=== PATIENT | female | born 1950 | race Caucasian/White ===

== ENCOUNTER 2024-12-26 09:43 | Inpatient (IN) | payer MEDICARE, SELFPAY ==
[2024-12-26] VITALS (44 sets, daily range): BP systolic 85–112; BP diastolic 42–61; PULSE 80–111; TEMP 36.6–36.9; O2SAT 90–97; BMI 20.8; BMI 20.4
--- NOTE | 2024-12-26 10:03 | ECG_ITS ---
The [facility] Test Date: 2024-12-26 Pat Name: SEGUNDO ARZOLA Department: Room: - Gender: Female Nursing Assoc: : 1950 Requested By: 1030 Order Number: [id number] Reading MD: LEROY MAYFIELD Measurements Intervals [place] Rate: 94 P: 90 SC: 166 QRS: 67 QRSD: 100 T: 73 QT: 394 QTc: 446 Interpretive Statements 1100 Sinus rhythm Right bundle branch block Secondary ST/T wave changes 9150 abnormal ECG No previous ECG available for comparison Electronically Signed On 12-26-2024 19:43:27 EST by LEROY MAYFIELD
--- NOTE | 2024-12-26 10:04 | ED_ITS ---
HPI HPI - General Adult General Chief complaint: Upper Respiratory Infection Stated complaint: URTI COMPLAINTS Time Seen by Provider: 12/26/24 09:51 Source: patient Mode of arrival: Wheelchair History of Present Illness HPI narrative: 74-year-old female presents for cough and feeling short of breath. Most of the history is obtained by her daughter who brings her in. She has been feeling sick for multiple days, about a week. She has not used her rescue inhaler. She has not had a known fever. She did not have a flu shot or pneumonia shot this year. Related Data Home Medications ?Medication ?Instructions ?Recorded ?Confirmed acetaminophen 300 mg-codeine 30 mg 1 tab PO BID 12/26/24 12/26/24 tablet albuterol sulfate 90 mcg/actuation 2 puff inhalation Q4H PRN 12/26/24 12/26/24 aerosol inhaler shortness of breath or wheezing budesonide 160 mcg-glycopyr 9 2 inh inhalation BID 12/26/24 12/26/24 mcg-formot 4.8 mcg/actuation HFA inhaler ([employer]) cetirizine 10 mg tablet 10 mg PO QPM 12/26/24 12/26/24 cyanocobalamin (vitamin B-12) 1,000 mcg IM .[id number] 12/26/24 12/26/24 1,000 mcg/mL injection solution ergocalciferol (vitamin D2) 1,250 1,250 mcg PO QWEEK 12/26/24 12/26/24 mcg (50,000 unit) capsule fluticasone propionate 50 2 spray intranasal DAILY 12/26/24 12/26/24 mcg/actuation nasal spray,suspension levothyroxine 88 mcg tablet 88 mcg PO DAILY 12/26/24 12/26/24 temazepam 15 mg capsule 15 mg PO QPM 12/26/24 12/26/24 Allergies Allergy/AdvReac Type Severity Reaction Status Date / Time acetaminophen (From Allergy Severe Unknown Verified 12/26/24 10:02 Darvocet-N) butorphanol (From Stadol) Allergy Severe Unknown Verified 12/26/24 10:02 oxycodone (From Percocet) Allergy Severe Unknown Verified 12/26/24 10:02 propoxyphene (From Allergy Severe Unknown Verified 12/26/24 10:02 Darvocet-N) Opioid HPI Opioid Management Most Recent Opioid Data: No Data to Display Review of Systems 2 ROS Narrative A ten point review of systems is negative except as noted above. PFSH PFSH Social History Little interest or pleasure in doing things: not at all Feeling down, depressed, or hopeless: not at all Exam Narrative Exam Narrative: Nurses note and vital signs reviewed and patient is not hypoxic. General: The patient appears well and in no apparent distress. Patient is resting comfortably on cart. Skin: Warm, dry, no pallor noted. There is no rash noted. Head: Normocephalic, atraumatic Eye: Normal conjunctiva, no drainage Ears, Nose, Mouth, and Throat: oral mucosa is moist. Nares patent. Cardiovascular: Regular Rate and Rhythm Respiratory: Bilateral rhonchi and bilateral rales Back: non-tender GI: Soft and nontender Musculoskeletal: The patient has no evidence of calf tenderness, no pitting edema, symmetrical pulses noted bilaterally Neurological: A&O, normal speech Psychiatric: Cooperative Constitutional Vital Signs, click to edit/add: Last Vital Signs Temp 97.9 F 12/26/24 10:02 Pulse 99 H 12/26/24 09:57 Resp 18 12/26/24 09:57 BP 102/58 12/26/24 11:07 Pulse Ox 97 12/26/24 10:39 O2 Del Method Nasal Cannula 12/26/24 10:39 O2 Flow Rate 3 12/26/24 10:39 Course Vital Signs Vital signs: Vital Signs Pulse Rate 99 H 12/26/24 09:57 Respiratory Rate 18 12/26/24 09:57 Blood Pressure 85/61 L 12/26/24 09:57 Pulse Oximetry 93 L 12/26/24 09:57 Oxygen Delivery Method Nasal Cannula 12/26/24 09:57 Oxygen Delivery Flow Rate 3 12/26/24 09:57 Temperature 97.9 F 12/26/24 10:02 Pulse Rate 99 H 12/26/24 09:57 Respiratory Rate 18 12/26/24 09:57 Blood Pressure 102/58 12/26/24 11:07 Pulse Oximetry 97 12/26/24 10:39 Oxygen Delivery Method Nasal Cannula 12/26/24 10:39 Oxygen Delivery Flow Rate 3 12/26/24 10:39 Medical Decision Making MDM Narrative Medical decision making narrative: Bilateral lower lobe pneumonia is identified. Blood cultures obtained and lactic acid is pending. She was given IV Rocephin and Zithromax and is being admitted. Treatment diagnosis and disposition were discussed with the patient and her daughter. Differential Diagnosis Differential Diagnosis: Pneumonia, COVID, influenza, viral illness Lab Data Lab results reviewed: Yes I reviewed the patient's lab results Labs: Lab Results 12/26/24 12/26/24 Range/Units 10:05 10:06 WBC 6.3 (4.0-11.0) 10^3/uL RBC 4.19 L (4.20-5.40) 10^6/uL Hgb 11.6 L (12.0-16.0) g/dL Hct 37.1 (36.0-48.0) % MCV 88.5 (81.0-99.0) fL MCH 27.7 (26.7-34.0) pg MCHC 31.3 (29.9-35.2) g/dL RDW 17.0 H (11.0-15.0) % Plt Count 78 L (150-450) 10^3/uL MPV 13.4 (9.5-13.5) fL Neut % (Auto) 89.2 H (43.0-75.0) % Lymph % (Auto) 3.7 L (20.5-60.0) % Hughes % (Auto) 6.9 (1.7-12.0) % Eos % (Auto) 0.0 L (0.9-7.0) % Baso % (Auto) 0.0 L (0.2-2.0) % Neut # (Auto) 5.6 (1.4-6.5) 10^3/uL Lymph # (Auto) 0.2 L (1.2-3.8) 10^3/uL Hughes # (Auto) 0.4 (0.3-0.8) 10^3/uL Eos # (Auto) 0.0 (0.0-0.7) 10^3/uL Baso # (Auto) 0.0 (0.0-0.1) 10^3/uL Abs Immat Gran (auto) 0.01 (0.00-0.03) 10^3/uL Imm/Tot Granulo (auto) 0.2 (0.0-0.5) % Sodium 144 (136-145) mmol/L Potassium 3.5 (3.5-5.1) mmol/L Chloride 108 H (98-107) mmol/L Carbon Dioxide 26.3 (21.0-32.0) mmol/L Anion Gap 13.2 BUN 18.0 (7.0-18.0) mg/dL Creatinine 0.77 (0.55-1.02) mg/dL Est GFR ( Amer) >60 (>=60 mL/min/1.73m^2) Est GFR (Non-Af Amer) >60 (>=60 mL/min/1.73m^2) BUN/Creatinine Ratio 23.4 Glucose 124 H (74-106) mg/dL Lactate 1.6 (0.4-2.0) mmol/L Calcium 7.1 L (8.5-10.1) mg/dL Troponin I High Sens 15.3 (4.0-51.3) pg/mL Influenza Type A Ag Negative Influenza Type B Ag Negative SARS-CoV-2 Ag (CV2AG) Negative (NEGATIVE) Imaging Data Chest x-ray: Radiologist's impression: ITS Impressions Chest X-Ray 12/26/24 10:15 IMPRESSION: 1. Moderate to marked bibasilar infiltrates suggestive of pneumonia. 2. Underlying marked emphysematous changes. Electronically authenticated by: JIGNA POWELL Date: 12/26/2024 10:35 Discharge Plan Discharge Chief Complaint: Upper Respiratory Infection Clinical Impression: Pneumonia Patient Disposition: Admitted As Inpatient Time of Disposition Decision: 11:22 Condition: Fair
--- NOTE | 2024-12-26 10:15 | XR_ITS ---
The [address] [address] Patient Name: SEGUNDO ARZOLA MRN: [id number] date: 1950 Sex: F Assigned Patient Location: ED.MAIN Current Patient Location: ER Accession/Order Number: [id number] Exam Date: 12/26/2024 10:12 Report Date: 12/26/2024 10:35 At the request of: ZOEY ANNE Procedure: XR chest 1V EXAMINATION: XR chest 1V HISTORY: SOB COMPARISON: No relevant comparison available. FINDINGS: LUNGS: Hyperexpanded lungs with chronic interstitial changes/emphysematous changes. Patchy confluent opacities within lung bases; moderate on right, marked on left. VASCULATURE: No increased pulmonary vasculature. PLEURA: No pneumothorax, effusion, or pleural thickening. CARDIAC: No cardiomegaly or cardiac silhouette abnormality. MEDIASTINUM: No visible mass or adenopathy. BONES: No fracture or visible bone lesion. OTHER: Negative. XR/XR chest 1V IMPRESSION: 1. Moderate to marked bibasilar infiltrates suggestive of pneumonia. 2. Underlying marked emphysematous changes. Electronically authenticated by: JIGNA POWELL Date: 12/26/2024 10:35
[2024-12-26] MEDS: ALBUTEROL SULFATE 2.5 MG/3 ML VIAL NEB IH (10:31)
[2024-12-26 10:39] LABS: Hematocrit 37.1 % (36.0-48.0); Hemoglobin 11.6 g/dL (12.0-16.0); Immature Granulocytes Abs Auto 0.01 10^3/uL (0.00-0.03); Immature Granulocytes Pct Auto 0.2 % (0.0-0.5); Lymphocytes Absolute Auto 0.2 10^3/uL (1.2-3.8); Lymphocytes Percent Auto 3.7 % (20.5-60.0); Mean Corpuscular HGB Conc 31.3 g/dL (29.9-35.2); Mean Corpuscular Hemoglobin 27.7 pg (26.7-34.0); Mean Corpuscular Volume 88.5 fL (81.0-99.0); Mean Platelet Volume 13.4 fL (9.5-13.5); Monocytes Absolute Auto 0.4 10^3/uL (0.3-0.8); Monocytes Percent Auto 6.9 % (1.7-12.0); Neutrophils Absolute Auto 5.6 10^3/uL (1.4-6.5); Neutrophils Percent Auto 89.2 % (43.0-75.0); Platelet Count 78 10^3/uL (150-450); Red Blood Count 4.19 10^6/uL (4.20-5.40); White Blood Count 6.3 10^3/uL (4.0-11.0)
[2024-12-26 10:51] LABS: Anion Gap 13.2; BUN Creatinine Ratio 23.4; Calcium 7.1 mg/dL (8.5-10.1); Carbon Dioxide 26.3 mmol/L (21.0-32.0); Chloride 108 mmol/L (98-107); Estimated GFR (African America >60 (>=60 mL/min/1.73m^2); Estimated GFR (Non-African Ame >60 (>=60 mL/min/1.73m^2); Glucose 124 mg/dL (74-106); Potassium 3.5 mmol/L (3.5-5.1); Sodium 144 mmol/L (136-145)
[2024-12-26 10:55] LABS: Influenza Virus A Antigen Negative; Influenza Virus B Antigen Negative; Internal Control Within Normal Limits; SARS-CoV-2 Ag NEGATIVE (NEGATIVE)
[2024-12-26 10:58] LABS: Troponin I High Sensitivity 15.3 pg/mL (4.0-51.3)
[2024-12-26 11:00] LABS: Lactate/Lactic Acid 1.6 mmol/L (0.4-2.0)
--- NOTE | 2024-12-26 11:08 | PC.NURSE ---
blood cult x 2 obtained and sent to lab
[2024-12-26] MEDS: CEFTRIAXONE 1,000 MG in 0.9 % SODIUM CHLORIDE 50 ML 100 MG IV (11:17)
[2024-12-26] MEDS: AZITHROMYCIN 500 MG in 0.9 % SODIUM CHLORIDE 250 ML 250 MG IV (11:22)
[2024-12-26] MEDS: ACETAMINOPHEN 300 MG/ 30 MG CODEINE TABLET 0.5 TAB PO ×3 (12:13→21:58)
[2024-12-26] MEDS: ACETAMINOPHEN 500 MG TABLET PO ×3 (12:13→21:58)
--- NOTE | 2024-12-26 14:04 | RESP.RT ---
Given per nursing
--- NOTE | 2024-12-26 14:20 | PM.HP ---
HPI H&P: HPI History of Present Illness Chief complaint: URTI COMPLAINTS PNEUMONIA Narrative: Patient is a 74 y.o white female with past medical history of hypothyroidism, insomnia, seasonal allergies, COPD and chronic back pain what presented to the ER with weakness, shortness of breath, cough, nasal drainage, chills. This has been going on for several days prior to presentation. She is past smoker, quit many years ago. She does wears oxygen at home, 3L at home. She has been using it continuous for last few days at 3L . 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 She also has been using her nebulizer machine regularly without improvement. ER findings: WBCs 6.3, Hb 11.6; CXR showed bilateral lower lobe infiltrates, influenza and COVID negative Opioid HPI Opioid Management Most Recent Pain and Opioid Data: Last Pain Scale 6 12/26/24 15:00 12/26/24 Last Pain Assessment 12/26/24 16:00 Last MAR Pain Assessment 12/26/24 12:13 Last ORT Total Score 0 12/26/24 14:53 12/26/24 Last ORT Risk Category Low Risk 12/26/24 14:53 12/26/24 Review of Systems ROS Narrative ROS: a complete review of systems were reviewed with patient and are positive as below or listed in History of Chief Complaint. General: no fever, but chills, no night sweats Head: no headache, trauma, visual changes, nausea or vomiting Skin: no reported rashes, itching or sores Eyes: no blurriness of vision Ears: no reported hearing loss, vertigo, earache, or tinnitus Throat: no sore throat, hoarseness, swelling of neck, or tongue pain Heart: no chest pain Lungs: shortness of breath and cough GI: diarrhea, no vomiting/nausea Urinary: no urinary urgency, frequency or pain Neuro: no numbness or tingling HEM: no bleeding issues or bruising ENDO: no thyroid problems Psych: no anxiety or depression [facility] Medical History (Updated 12/26/24 @ 16:39 by Marly Aguilera DO) Chronic lumbosacral pain ?M54.50 - Low back pain, unspecified (ICD-10) ?G89.29 - Other chronic pain (ICD-10) Open heart injury with hemopericardium ?S26.09XA - Other injury of heart with hemopericardium, initial encounter (ICD-10) ?S21.90XA - Unspecified open wound of unspecified part of thorax, initial encounter (ICD-10) Seasonal allergies ?J30.2 - Other seasonal allergic rhinitis (ICD-10) Insomnia ?G47.00 - Insomnia, unspecified (ICD-10) Hypothyroidism (acquired) ?E03.9 - Hypothyroidism, unspecified (ICD-10) Surgical History H/O thyroidectomy ?Z98.890 - Other specified postprocedural states (ICD-10) ?Z90.89 - Acquired absence of other organs (ICD-10) History of open heart surgery ?Z98.890 - Other specified postprocedural states (ICD-10) Family History Father Family history of cancer Family history of diabetes mellitus Family history of hypertension Social History Within the past year, how often did you have a drink containing alcohol: never Score interpretation: A score less than 3 is consistent with normal alcohol consumption. Smoking status: Former smoker Non-prescribed substance use: denies use Highest level of school completed/degree received: high school graduate Are you now , , , , never or living with a partner: In a typical week, how many times do you talk on the telephone with family, friends, or neighbors: 3 or more times per week How often do you get together with friends or relatives: 3 or more times per week How often do you attend congregation or baptism services: never Do you belong to any clubs or organizations such as congregation groups unions, fraternal or athletic groups, or school groups: no Total score: 1 Score interpretation: A score of less than or equal to 1 indicates the most socially isolated. Little interest or pleasure in doing things: not at all Feeling down, depressed, or hopeless: not at all Feel stressed/tense/nervous/anxious/difficulty sleeping: not at all Meds Home Medications and Allergies Home Medications ?Medication ?Instructions ?Recorded ?Confirmed ?Type acetaminophen 300 mg-codeine 30 mg 0.5 tab PO QID 12/26/24 12/26/24 History tablet acetaminophen 500 mg tablet 500 mg PO QID 12/26/24 12/26/24 History (Tylenol Extra Strength) albuterol sulfate 90 mcg/actuation 2 puff inhalation Q4H PRN 12/26/24 12/26/24 History aerosol inhaler shortness of breath or wheezing budesonide 160 mcg-glycopyr 9 2 inh inhalation BID 12/26/24 12/26/24 History mcg-formot 4.8 mcg/actuation HFA inhaler ([employer]) cetirizine 10 mg tablet 10 mg PO QPM 12/26/24 12/26/24 History cyanocobalamin (vitamin B-12) 1,000 mcg IM .[id number] 12/26/24 12/26/24 History 1,000 mcg/mL injection solution ergocalciferol (vitamin D2) 1,250 1,250 mcg PO QWEEK 12/26/24 12/26/24 History mcg (50,000 unit) capsule fluticasone propionate 50 2 spray intranasal DAILY 12/26/24 12/26/24 History mcg/actuation nasal spray,suspension levothyroxine 88 mcg tablet 88 mcg PO DAILY 12/26/24 12/26/24 History pregabalin 100 mg capsule 300 mg PO .Q8 12/26/24 12/26/24 History temazepam 15 mg capsule 15 mg PO QPM 12/26/24 12/26/24 History Allergies Allergy/AdvReac Type Severity Reaction Status Date / Time butorphanol (From Stadol) Allergy Severe Unknown Verified 12/26/24 10:02 oxycodone (From Percocet) Allergy Severe Unknown Verified 12/26/24 10:02 propoxyphene (From Allergy Severe Unknown Verified 12/26/24 10:02 Darvocet-N) Exam Narrative Exam Narrative: General: Patient is alert, and oriented to person, place and time with normal affect, proper hygiene Skin: no visible rashes, or ulcers Head: atraumatic, acephalic Eyes: PERRLA, no nystagmus present, conjunctiva clear, no scleral icterus Ears: normal gross auditory acuity Neck: no masses palpated, normal thyroid Heart: Normal rate and rhythm, no murmurs/rubs/gallops Lungs: audible wheezes, crackles and diminished breath sounds Abdomen: Normal audible bowel sounds, no distension, No palpable masses, no organomegaly, no rebound/guarding/ or rigidity Musculoskeletal: no swelling bilateral lower extremities Neuro: CN II-X grossly intact Constitutional Vital Signs, click to edit/add: Last Vital Signs Temp 97.9 F 12/26/24 10:02 Pulse 87 12/26/24 14:00 Resp 33 H 12/26/24 14:00 BP 102/58 12/26/24 11:07 Pulse Ox 95 12/26/24 14:00 O2 Del Method Nasal Cannula 12/26/24 10:39 O2 Flow Rate 3 12/26/24 10:39 Results Labs Labs: Short CBC 12/26/24 Range/Units 10:06 WBC 6.3 (4.0-11.0) 10^3/uL Hgb 11.6 L (12.0-16.0) g/dL Hct 37.1 (36.0-48.0) % Plt Count 78 L (150-450) 10^3/uL BMP 12/26/24 10:06 Sodium 144 Potassium 3.5 Chloride 108 H Carbon Dioxide 26.3 BUN 18.0 Creatinine 0.77 Glucose 124 H Calcium 7.1 L Assessment and Plan Assessment and Plan (1) Pneumonia: Assessment and Plan: continue Azithromycin and rocephin IV, opep, duonebs, pulmicort and albuterol as needed, solumedrol 60mg q6 hours. monitor need for more oxygen. Viral testing negative Qualifiers: Laterality: bilateral Lung location: lower lobe of lung Pneumonia type: due to unspecified organism Qualified Code(s): J18.9 - Pneumonia, unspecified organism (2) Acute on chronic hypoxic respiratory failure: Assessment and Plan: uses 3L at night time but requiring 3 L continuous now. (3) COPD exacerbation: Assessment and Plan: due to #1, addition of solumedrol today; duonebs (4) Hypothyroidism (acquired): Assessment and Plan: continue levothyroxine (5) Insomnia: Assessment and Plan: continue restoril Qualifiers: Insomnia type: primary Qualified Code(s): F51.01 - Primary insomnia (6) Seasonal allergies: Assessment and Plan: continue flonase and zyrtec (7) Chronic lumbosacral pain: Assessment and Plan: continue lyrica and Tylenol #3. Plan Patient is full code continue lovenox for DVT prophylaxis patient is observation status and is not expected to cross 2 midnights.
[2024-12-26] MEDS: IPRATROPIUM/ALBUTEROL SULFATE 3 ML AMPUL.NEB IH ×2 (16:07→23:21)
[2024-12-26] MEDS: CETIRIZINE HCL 10 MG TABLET PO (19:40)
[2024-12-26] MEDS: METHYLPREDNISOLONE SOD SUCC PF 40 MG/ML VIAL IVP (19:40)
[2024-12-26] MEDS: ENOXAPARIN SODIUM 40 MG/0.4 ML SYRINGE SUBQ (21:54)
[2024-12-26] MEDS: PREGABALIN 100 MG CAPSULE 300 MG PO (21:58)
[2024-12-26] MEDS: TEMAZEPAM 15 MG CAPSULE PO (21:58)
[2024-12-26] MEDS: BUDESONIDE 0.5 MG/2 ML AMPULE NEB IH (23:21)
[2024-12-27] VITALS (18 sets, daily range): BP systolic 91–110; BP diastolic 50–63; PULSE 85–110; TEMP 36.3–36.7; O2SAT 90–98
[2024-12-27] MEDS: METHYLPREDNISOLONE SOD SUCC PF 40 MG/ML VIAL IVP ×4 (01:51→20:43)
[2024-12-27] MEDS: IPRATROPIUM/ALBUTEROL SULFATE 3 ML AMPUL.NEB IH ×4 (04:01→22:44)
[2024-12-27] MEDS: LEVOTHYROXINE SODIUM 88 MCG TABLET PO (05:45)
[2024-12-27] MEDS: PREGABALIN 100 MG CAPSULE 300 MG PO ×3 (05:45→21:18)
[2024-12-27 06:05] LABS: Eosinophils Percent Auto 0.2 % (0.9-7.0); Hematocrit 33.3 % (36.0-48.0); Hemoglobin 10.5 g/dL (12.0-16.0); Immature Granulocytes Abs Auto 0.03 10^3/uL (0.00-0.03); Immature Granulocytes Pct Auto 0.6 % (0.0-0.5); Lymphocytes Absolute Auto 0.1 10^3/uL (1.2-3.8); Lymphocytes Percent Auto 1.7 % (20.5-60.0); Mean Corpuscular HGB Conc 31.5 g/dL (29.9-35.2); Mean Corpuscular Hemoglobin 27.9 pg (26.7-34.0); Mean Corpuscular Volume 88.6 fL (81.0-99.0); Mean Platelet Volume 13.2 fL (9.5-13.5); Monocytes Absolute Auto 0.1 10^3/uL (0.3-0.8); Monocytes Percent Auto 2.1 % (1.7-12.0); Neutrophils Absolute Auto 4.5 10^3/uL (1.4-6.5); Neutrophils Percent Auto 95.4 % (43.0-75.0); Platelet Count 72 10^3/uL (150-450); Red Blood Count 3.76 10^6/uL (4.20-5.40); Red Cell Distribution Width 16.9 % (11.0-15.0); White Blood Count 4.7 10^3/uL (4.0-11.0)
[2024-12-27 06:17] LABS: Alanine Aminotransferase 23 U/L (14-59); Albumin Globulin Ratio 0.7; Albumin Level 2.6 g/dL (3.4-5.0); Alkaline Phosphatase 72 U/L (46-116); Anion Gap 12.8; Aspartate Amino Transferase 15 U/L (15-37); BUN Creatinine Ratio 35.7; Bilirubin Total 0.4 mg/dL (0.2-1.0); Calcium 6.8 mg/dL (8.5-10.1); Carbon Dioxide 25.8 mmol/L (21.0-32.0); Chloride 110 mmol/L (98-107); Estimated GFR (African America >60 (>=60 mL/min/1.73m^2); Estimated GFR (Non-African Ame >60 (>=60 mL/min/1.73m^2); Globulin 3.5 g/dL; Glucose 163 mg/dL (74-106); Magnesium 2.2 mg/dL (1.8-2.4); Potassium 3.6 mmol/L (3.5-5.1); Sodium 145 mmol/L (136-145); Total Protein 6.1 g/dL (6.4-8.2)
[2024-12-27] MEDS: FLUTICASONE PROPIONATE 50 MCG NASAL SPRAY 2 SPRAY NS (08:08)
[2024-12-27] MEDS: ACETAMINOPHEN 500 MG TABLET PO ×4 (08:12→21:17)
[2024-12-27] MEDS: ACETAMINOPHEN 300 MG/ 30 MG CODEINE TABLET 0.5 TAB PO ×4 (08:13→21:17)
--- NOTE | 2024-12-27 09:07 | PM.PN ---
Progress Note: Subjective Subjective Interval history: Patient feeling better today. still with some shortness of breath and productive cough. She has oxygen at home for 3L NC continuous but only uses at night time. She denies fever or chills. No n/v/d. Daughter is at bedside this morning. Exam Narrative Exam Narrative: General: Patient is alert, and oriented to person, place and time with normal affect, proper hygiene Skin: no visible rashes, or ulcers Head: atraumatic, acephalic Eyes: PERRLA, no nystagmus present, conjunctiva clear, no scleral icterus Ears: normal gross auditory acuity Neck: no masses palpated, normal thyroid Heart: Normal rate and rhythm, no murmurs/rubs/gallops Lungs: audible wheezes, crackles and diminished breath sounds Abdomen: Normal audible bowel sounds, no distension, No palpable masses, no organomegaly, no rebound/guarding/ or rigidity Musculoskeletal: no swelling bilateral lower extremities Neuro: CN II-X grossly intact Constitutional Vital Signs, click to edit/add: Last Vital Signs Temp 98.1 F 12/27/24 07:14 Pulse 86 12/27/24 08:00 Resp 18 12/27/24 07:14 BP 91/50 12/27/24 07:14 Pulse Ox 90 L 12/27/24 07:14 O2 Del Method Room Air 12/27/24 07:14 O2 Flow Rate 2 12/27/24 07:14 Progress Note: Objective Labs Labs: Short CBC 12/26/24 12/27/24 Range/Units 10:06 05:39 WBC 6.3 4.7 (4.0-11.0) 10^3/uL Hgb 11.6 L 10.5 L (12.0-16.0) g/dL Hct 37.1 33.3 L (36.0-48.0) % Plt Count 78 L 72 L (150-450) 10^3/uL BMP 12/26/24 12/27/24 10:06 05:39 Sodium 144 145 Potassium 3.5 3.6 Chloride 108 H 110 H Carbon Dioxide 26.3 25.8 BUN 18.0 20.0 H Creatinine 0.77 0.56 Glucose 124 H 163 H Calcium 7.1 L 6.8 L Liver Function 12/27/24 Range/Units 05:39 Total Bilirubin 0.4 (0.2-1.0) mg/dL AST 15 (15-37) U/L ALT 23 (14-59) U/L Alkaline Phosphatase 72 (46-116) U/L Albumin 2.6 L (3.4-5.0) g/dL Progress Note: A&P Assessment and Plan (1) Pneumonia: Assessment and Plan: continue Azithromycin and rocephin IV, opep, duonebs, pulmicort and albuterol as needed, solumedrol 60mg q6 hours. Qualifiers: Laterality: bilateral Lung location: lower lobe of lung Pneumonia type: due to unspecified organism Qualified Code(s): J18.9 - Pneumonia, unspecified organism (2) Acute on chronic hypoxic respiratory failure: Assessment and Plan: 3 L continuous (3) COPD exacerbation: Assessment and Plan: due to #1, continue solumedrol, duonebs (4) Hypothyroidism (acquired): Assessment and Plan: continue levothyroxine (5) Insomnia: Assessment and Plan: continue restoril Qualifiers: Insomnia type: primary Qualified Code(s): F51.01 - Primary insomnia (6) Seasonal allergies: Assessment and Plan: continue flonase and zyrtec (7) Chronic lumbosacral pain: Assessment and Plan: continue lyrica and Tylenol #3. Plan Patient is full code continue lovenox for DVT prophylaxis hopeful discharge home tomorrow
[2024-12-27] MEDS: BUDESONIDE 0.5 MG/2 ML AMPULE NEB IH ×2 (11:09→22:45)
[2024-12-27] MEDS: AZITHROMYCIN 500 MG in 0.9 % SODIUM CHLORIDE 250 ML 250 MG IV (11:13)
[2024-12-27] MEDS: FLU VACC QS2024(65UP)/MF59C/PF 60 MCG/0.5 ML SYRINGE IM (11:13)
[2024-12-27] MEDS: CEFTRIAXONE 1,000 MG in 0.9 % SODIUM CHLORIDE 50 ML 100 MG IV (12:35)
--- NOTE | 2024-12-27 12:49 | SWNOTE1 ---
SW called [facility] and pt's baseline oxygen is 3 liters per minute nasal canula, continuous and script was from March 2024. SW updated case management.
--- NOTE | 2024-12-27 12:50 | CM.NOTE ---
Rounds made with Dr. Aguilera, no discharge today. Continue IV antibiotics and breathing tx.
--- NOTE | 2024-12-27 16:00 | SWNOTE1 ---
Medicare Outpatient Observation Notice reviewed and discussed with patient. Pt. verbalized understanding and signed the form. Original given to patient and copy placed in patient?s chart.
--- NOTE | 2024-12-27 16:00 | SWNOTE1 ---
SW met with pt to discuss dc needs. Pt lives at home alone. Pt voiced she does not use a walker or any devices at home, but she has a walker if needed. Pt does still work. SW asked if she wore her oxygen at work. She stated no that she has it in her car and that she does not have to wear it /. SW did let pt know that SW did call [facility] and her last script was for 3 liters continuous. Pt voiced again that she only needs it at night. SW and pt spoke about home health services and the recommendations of therapy coming in to the home. Pt stated she does not need that and she will be fine. Pt is refusing HH at this time. Pt will contact PCP if she does change her mind. At this time pt has no anticipated discharge needs. SW to follow as needed.
[2024-12-27] MEDS: CETIRIZINE HCL 10 MG TABLET PO (20:43)
[2024-12-27] MEDS: ENOXAPARIN SODIUM 40 MG/0.4 ML SYRINGE SUBQ (21:15)
[2024-12-27] MEDS: TEMAZEPAM 15 MG CAPSULE PO (22:32)
[2024-12-28] VITALS (26 sets, daily range): BP systolic 92–133; BP diastolic 45–73; PULSE 87–117; TEMP 36.3–36.9; O2SAT 90–96
[2024-12-28 01:59] LABS: A. calcoaceticus-baumannii Cpx NOT DETECTED (NOT DETECTE); Bacteroides fragilis NOT DETECTED (NOT DETECTE); Candida albicans NOT DETECTED (NOT DETECTE); Candida auris NOT DETECTED (NOT DETECTE); Candida glabrata NOT DETECTED (NOT DETECTE); Candida krusei NOT DETECTED (NOT DETECTE); Candida parapsilosis NOT DETECTED (NOT DETECTE); Candida tropicalis NOT DETECTED (NOT DETECTE); Cryptococcus neoformans/gattii NOT DETECTED (NOT DETECTE); Enterobacter cloacae complex NOT DETECTED (NOT DETECTE); Enterobacterales NOT DETECTED (NOT DETECTE); Enterococcus faecalis NOT DETECTED (NOT DETECTE); Enterococcus faecium NOT DETECTED (NOT DETECTE); Haemophilus influenzae NOT DETECTED (NOT DETECTE); Klebsiella aerogenes NOT DETECTED (NOT DETECTE); Klebsiella pneumoniae group NOT DETECTED (NOT DETECTE); Listeria monocytogenes NOT DETECTED (NOT DETECTE); Neisseria meningitidis NOT DETECTED (NOT DETECTE); Proteus spp. NOT DETECTED (NOT DETECTE); Pseudomonas aeruginosa NOT DETECTED (NOT DETECTE); Salmonella spp. NOT DETECTED (NOT DETECTE); Serratia marcescens NOT DETECTED (NOT DETECTE); Staphylococcus epidermidis NOT DETECTED (NOT DETECTE); Staphylococcus lugdunensis NOT DETECTED (NOT DETECTE); Staphylococcus spp. NOT DETECTED (NOT DETECTE); Stenotrophomonas maltophilia NOT DETECTED (NOT DETECTE); Streptococcus agalactiae NOT DETECTED (NOT DETECTE); Streptococcus pneumoniae NOT DETECTED (NOT DETECTE); Streptococcus pyogenes NOT DETECTED (NOT DETECTE); Streptococcus spp. NOT DETECTED (NOT DETECTE)
[2024-12-28] MEDS: METHYLPREDNISOLONE SOD SUCC PF 40 MG/ML VIAL IVP ×4 (02:39→21:43)
[2024-12-28 03:48] LABS: Source BLOOD
[2024-12-28] MEDS: IPRATROPIUM/ALBUTEROL SULFATE 3 ML AMPUL.NEB IH ×4 (04:04→23:23)
[2024-12-28] MEDS: GUAIFENESIN 200 MG/DEXTROMETHORPHAN 20 MG 10 ML UNIT DOSE CUP PO ×2 (05:17→18:50)
[2024-12-28] MEDS: PREGABALIN 100 MG CAPSULE 300 MG PO ×3 (05:19→22:33)
[2024-12-28] MEDS: LEVOTHYROXINE SODIUM 88 MCG TABLET PO (05:30)
[2024-12-28 06:09] LABS: Hematocrit 33.4 % (36.0-48.0); Hemoglobin 10.6 g/dL (12.0-16.0); Immature Granulocytes Abs Auto 0.06 10^3/uL (0.00-0.03); Lymphocytes Absolute Auto 0.1 10^3/uL (1.2-3.8); Lymphocytes Percent Auto 1.7 % (20.5-60.0); Mean Corpuscular HGB Conc 31.7 g/dL (29.9-35.2); Mean Corpuscular Hemoglobin 27.9 pg (26.7-34.0); Mean Corpuscular Volume 87.9 fL (81.0-99.0); Mean Platelet Volume 12.3 fL (9.5-13.5); Monocytes Absolute Auto 0.2 10^3/uL (0.3-0.8); Monocytes Percent Auto 3.7 % (1.7-12.0); Neutrophils Absolute Auto 5.4 10^3/uL (1.4-6.5); Neutrophils Percent Auto 93.6 % (43.0-75.0); Platelet Count 88 10^3/uL (150-450); Red Cell Distribution Width 16.8 % (11.0-15.0); White Blood Count 5.8 10^3/uL (4.0-11.0)
[2024-12-28 06:28] LABS: Alanine Aminotransferase 21 U/L (14-59); Albumin Globulin Ratio 0.7; Albumin Level 2.7 g/dL (3.4-5.0); Alkaline Phosphatase 77 U/L (46-116); Aspartate Amino Transferase 13 U/L (15-37); BUN Creatinine Ratio 22.7; Bilirubin Total 0.4 mg/dL (0.2-1.0); Calcium 7.1 mg/dL (8.5-10.1); Chloride 108 mmol/L (98-107); Estimated GFR (African America >60 (>=60 mL/min/1.73m^2); Estimated GFR (Non-African Ame >60 (>=60 mL/min/1.73m^2); Globulin 3.7 g/dL; Glucose 250 mg/dL (74-106); Sodium 144 mmol/L (136-145); Total Protein 6.4 g/dL (6.4-8.2)
--- NOTE | 2024-12-28 08:12 | ECG_ITS ---
The [facility] Test Date: 2024-12-28 Pat Name: SEGUNDO ARZOLA Department: Room: [facility] Gender: Female Shearer Operator: : 1950 Requested By: 1838 Order Number: [id number] Reading MD: LEROY MAYFIELD Measurements Intervals [place] Rate: 95 P: 71 [place]: 156 QRS: 40 QRSD: 150 T: 26 QT: 380 QTc: 479 Interpretive Statements SINUS RHYTHM WITH FREQUENT VENTRICULAR PREMATURE COMPLEXES RIGHT BUNDLE BRANCH BLOCK [120+ ms QRS DURATION, UPRIGHT V1, 40+ ms S IN I/aVL/V4/V5/V6] Compared to ECG 12/26/2024 10:01:40 Ventricular premature complex(es) now present Electronically Signed On 12-28-2024 20:13:06 EST by LEROY MAYFIELD
[2024-12-28 09:00] LABS: Magnesium 2.3 mg/dL (1.8-2.4)
[2024-12-28] MEDS: POTASSIUM CHLORIDE 40 MEQ in 0.9 % SODIUM CHLORIDE 250 ML 67.5 MEQ IV (09:23)
[2024-12-28] MEDS: POTASSIUM CHLORIDE 10 MEQ ER TABLET 20 MEQ PO (09:23)
[2024-12-28] MEDS: ACETAMINOPHEN 300 MG/ 30 MG CODEINE TABLET 0.5 TAB PO ×4 (10:04→22:32)
[2024-12-28] MEDS: ACETAMINOPHEN 500 MG TABLET PO ×4 (10:04→22:32)
[2024-12-28] MEDS: ENOXAPARIN SODIUM 60 MG/0.6 ML SYRINGE 50 MG SUBQ ×2 (10:06→21:42)
[2024-12-28] MEDS: FLUTICASONE PROPIONATE 50 MCG NASAL SPRAY 2 SPRAY NS (10:07)
[2024-12-28] MEDS: AZITHROMYCIN 500 MG in 0.9 % SODIUM CHLORIDE 250 ML 250 MG IV (10:52)
--- NOTE | 2024-12-28 11:22 | CM.NOTE ---
Rounds made with Dr. Aguilera. Dr. Aguilera reviews findings and telemetry findings with Ms. Brenner. Potential discharge later today if no further issues. Understanding verbalized.
[2024-12-28] MEDS: BUDESONIDE 0.5 MG/2 ML AMPULE NEB IH ×2 (11:47→23:23)
[2024-12-28] MEDS: CEFTRIAXONE 1,000 MG in 0.9 % SODIUM CHLORIDE 50 ML 100 MG IV (12:04)
--- NOTE | 2024-12-28 12:16 | P.PN_ITS ---
Progress Note: Subjective Subjective Interval history: Patient feeling better today. limited shortness of breath and productive cough. She has oxygen at home for 3L NC continuous but only uses at night time. She denies fever or chills. No n/v/d. 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 Potassium low, this was replaced IV and orally. Positive blood culture for staph aureus. Normal TSH, Mag and other electrolytes. Was thought episode of Afib seen on telemetry but EKG and exam findings tachycardia with PVC's. Discussed possible holter monitor at discharge. Patient has no history of this. Given findings of Bacteremia. Will need Echo today. Exam Narrative Exam Narrative: General: Patient is alert, and oriented to person, place and time with normal affect, proper hygiene Skin: no visible rashes, or ulcers Head: atraumatic, acephalic Eyes: PERRLA, no nystagmus present, conjunctiva clear, no scleral icterus Ears: normal gross auditory acuity Neck: no masses palpated, normal thyroid Heart: Normal rate and rhythm, no murmurs/rubs/gallops Lungs: audible wheezes, crackles improved today Abdomen: Normal audible bowel sounds, no distension, No palpable masses, no organomegaly, no rebound/guarding/ or rigidity Musculoskeletal: no swelling bilateral lower extremities Neuro: CN II-X grossly intact Constitutional Vital Signs, click to edit/add: Last Vital Signs Temp 97.9 F 12/28/24 11:16 Pulse 91 H 12/28/24 11:52 Resp 18 12/28/24 11:16 BP 112/66 12/28/24 11:16 Pulse Ox 95 12/28/24 11:50 O2 Del Method Nasal Cannula 12/28/24 11:50 O2 Flow Rate 1 12/28/24 11:50 Progress Note: Objective Labs Labs: Short CBC 12/28/24 Range/Units 05:57 WBC 5.8 (4.0-11.0) 10^3/uL Hgb 10.6 L (12.0-16.0) g/dL Hct 33.4 L (36.0-48.0) % Plt Count 88 L (150-450) 10^3/uL BMP 12/28/24 05:57 Sodium 144 Potassium 3.0 L Chloride 108 H Carbon Dioxide 24.0 BUN 17.0 Creatinine 0.75 Glucose 250 H Calcium 7.1 L Liver Function 12/28/24 Range/Units 05:57 Total Bilirubin 0.4 (0.2-1.0) mg/dL AST 13 L (15-37) U/L ALT 21 (14-59) U/L Alkaline Phosphatase 77 (46-116) U/L Albumin 2.7 L (3.4-5.0) g/dL Progress Note: A&P Assessment and Plan (1) Pneumonia: Assessment and Plan: continue Azithromycin and rocephin IV, opep, duonebs, pulmicort and albuterol as needed, solumedrol 60mg q6 hours. monitor need for more oxygen. Viral testing negative Qualifiers: Laterality: bilateral Lung location: lower lobe of lung Pneumonia type: due to unspecified organism Qualified Code(s): J18.9 - Pneumonia, unspecified organism (2) Gram-positive bacteremia: Assessment and Plan: add echo today. Will need 2 week duration of treatment. awaiting sensitivities (3) Acute on chronic hypoxic respiratory failure: Assessment and Plan: requiring 3 L continuous (4) COPD exacerbation: Assessment and Plan: due to #1, addition of solumedrol today; duonebs (5) Hypothyroidism (acquired): Assessment and Plan: continue levothyroxine (6) Insomnia: Assessment and Plan: continue restoril Qualifiers: Insomnia type: primary Qualified Code(s): F51.01 - Primary insomnia (7) Seasonal allergies: Assessment and Plan: continue flonase and zyrtec (8) Chronic lumbosacral pain: Assessment and Plan: continue lyrica and Tylenol #3. Plan Patient is full code continue lovenox for DVT prophylaxis patient is observation status but changed to inpatient status due to findings of bacteremia requiring more testing and is expected to cross 2 midnights.
--- NOTE | 2024-12-28 12:22 | CA_ITS ---
Patient Name: SEGUDNO ARZOLA MR#: [id number] : 1950 Exam Date: 12/28/2024 Ordering Doctor: CESAR CHEUNG . ECHOCARDIOGRAM REPORT PROCEDURE: CA ECHO DOPPLER COMPLETE INDICATIONS: tachycardia, staph bacteremia, COPD, h/o open heart (congenital defect) COMPARISON: None. DESCRIPTION: COMPLETE ECHOCARDIOGRAM Real-time transthoracic echocardiography with 2D, M-mode, spectral and color flow Doppler performed. QUALITY: Technical quality was good. LEFT VENTRICLE: Normal chamber size. Normal left ventricular wall thickness. Systolic function appears to be within normal limits. LV EF: Normal left ventricular ejection fraction, (55%). DIASTOLIC: Grade II diastolic dysfunction. ATRIAL SEPTUM: Visually appears intact. LEFT ATRIUM: Moderate dilatation. RIGHT ATRIUM: Mild dilatation. RIGHT VENTRICLE: Normal chamber size. Normal right ventricular systolic function. TRICUSPID VALVE: Normal mobility and thickness. No stenosis with trivial regurgitation. Doppler studies reveal moderately (45-60) elevated right sided pressures. RVSP 46 mmHg MITRAL VALVE: Normal mobility and thickness. No evidence of mitral valve stenosis. There is no mitral annular calcification. Trivial mitral regurgitation. AORTIC VALVE: Normal trileaflet appearance. No visible sclerosis. Normal leaflet mobility. No evidence of aortic valve stenosis. No aortic regurgitation. AORTIC ROOT: Normal diameter and appearance, measuring 3.2 cm. PULMONIC VALVE: Normal thickness and mobility. No stenosis. No regurgitation. PERICARDIUM: No evidence of pericardial effusion. IVC: IVC is normal in size, does not fully collapse. PLEURA: CONCLUSION: 1. Normal left ventricular size and systolic function. Estimated LVEF is 55%. 2. Normal right ventricular size and systolic function. 3. Mild to moderate biatrial dilatation. 4. Grade 2 diastolic dysfunction. 5. No significant valvular dysfunction. 6. Moderately elevated right-sided pressures. RVSP is 46 mmHg. Adult Echocardiography Procedure Report Left Ventricle LVEDD (3.7 - 5.6 cm): 4.20 cm LVESD (2.2 - 4.0 cm): 2.97 cm LVIVS thickness (0.6 - 1.2 cm): 0.83 cm LVPW thickness (0.5 - 1.0 cm): 0.79 cm e': 0.09 m/s E - e': 10.84 LVOT Max Gradient: 6.73 mm[Hg] LVOT Area (cm2): 1.30 m/s Peak Velocity (LVOT): 1.30 m/s Mean Velocity (LVOT): 0.86 m/s LVOT Diameter 2.45 cm Left Atrium LA Volume Index (2D A2C): 49.15 ml/m2 Left Atrium Systolic Dimension: 2.71 cm Mitral Valve MV E to A Ratio: 1.11 Mitral Valve A-Wave Peak Velocity: 0.90 m/s Mitral Valve E-Wave Peak Velocity: 1.00 m/s Right Ventricle Aorta AO Root Diam: 3.17 cm Aortic Valve AoV Area (Peak Brandon): 3.22 cm2, 3.22 cm2 AoV Area (VTI): 3.36 cm2, 3.36 cm2 Peak Velocity(Antegrade Flow): 1.89 m/s Peak Gradient(Antegrade Flow): 14.27 mm[Hg] Mean Velocity(Antegrade Flow): 1.27 m/s Mean Gradient(Antegrade Flow): 7.35 mm[Hg] Velocity Time Integral: 33.71 cm Tricuspid Valve Peak Velocity (Regurgitant Flow): 3.07 m/s Pulmonic Valve Mean Gradient: 3.24 mm[Hg] Mean Velocity: 0.85 m/s Peak Velocity: 1.28 m/s, 1.16 m/s Peak Gradient: 5.37 mm[Hg], 6.52 mm[Hg] Right Atrium Right Atrium Systolic Pressure: 44.75 ml, 44.75 ml Dictated by: Kvng Headley M.D. on 12/28/2024 at 17:43 Approved by: Kvng Headley M.D. on 12/28/2024 at 17:50
--- NOTE | 2024-12-28 14:49 | SWNOTE1 ---
Important Message from Medicare reviewed and discussed with patient. Pt. verbalized understanding and signed the form. Original given to patient and copy placed in patient?s chart. Pt was switched to inpt status.
[2024-12-28] MEDS: CETIRIZINE HCL 10 MG TABLET PO (21:43)
[2024-12-28] MEDS: TEMAZEPAM 15 MG CAPSULE PO (22:33)
[2024-12-29] VITALS (11 sets, daily range): BP systolic 126; BP diastolic 66–68; PULSE 83–116; TEMP 36.7–36.8; O2SAT 90–93
[2024-12-29] MEDS: MAALOX (MAG HYDROX/ALUMINUM HYD/SIMETH) 30 ML ORAL.SUSP PO (02:10)
[2024-12-29] MEDS: METHYLPREDNISOLONE SOD SUCC PF 40 MG/ML VIAL IVP ×3 (02:10→13:04)
[2024-12-29] MEDS: IPRATROPIUM/ALBUTEROL SULFATE 3 ML AMPUL.NEB IH ×2 (04:04→11:01)
[2024-12-29] MEDS: PREGABALIN 100 MG CAPSULE 300 MG PO ×2 (05:43→13:06)
[2024-12-29] MEDS: LEVOTHYROXINE SODIUM 88 MCG TABLET PO (05:43)
[2024-12-29 06:44] LABS: Hematocrit 33.5 % (36.0-48.0); Hemoglobin 10.6 g/dL (12.0-16.0); Mean Corpuscular HGB Conc 31.6 g/dL (29.9-35.2); Mean Corpuscular Hemoglobin 27.7 pg (26.7-34.0); Mean Corpuscular Volume 87.7 fL (81.0-99.0); Platelet Count 101 10^3/uL (150-450); Red Blood Count 3.82 10^6/uL (4.20-5.40); Red Cell Distribution Width 16.9 % (11.0-15.0); White Blood Count 5.1 10^3/uL (4.0-11.0)
[2024-12-29 06:59] LABS: Alanine Aminotransferase 23 U/L (14-59); Albumin Globulin Ratio 0.7; Albumin Level 2.7 g/dL (3.4-5.0); Alkaline Phosphatase 71 U/L (46-116); Anion Gap 11.9; Aspartate Amino Transferase 14 U/L (15-37); BUN Creatinine Ratio 22.2; Bilirubin Total 0.4 mg/dL (0.2-1.0); Calcium 6.9 mg/dL (8.5-10.1); Carbon Dioxide 27.9 mmol/L (21.0-32.0); Chloride 109 mmol/L (98-107); Estimated GFR (African America >60 (>=60 mL/min/1.73m^2); Estimated GFR (Non-African Ame >60 (>=60 mL/min/1.73m^2); Globulin 3.7 g/dL; Glucose 173 mg/dL (74-106); Potassium 3.8 mmol/L (3.5-5.1); Sodium 145 mmol/L (136-145); Total Protein 6.4 g/dL (6.4-8.2)
[2024-12-29 07:44] LABS: Lymphocytes Absolute Manual 0.15 10^3/uL (1.20-3.80); Metamyelocytes Absolute Manual 0.05; Monocytes Absolute Manual 0.25 10^3/uL (0.30-0.80); Segmented Neut Absolute Manual 4.64 10^3/uL (1.4-6.5)
[2024-12-29 07:45] LABS: Anisocytosis 2+
[2024-12-29] MEDS: ACETAMINOPHEN 300 MG/ 30 MG CODEINE TABLET 0.5 TAB PO ×2 (08:12→13:05)
[2024-12-29] MEDS: ENOXAPARIN SODIUM 60 MG/0.6 ML SYRINGE 50 MG SUBQ (08:12)
[2024-12-29] MEDS: ACETAMINOPHEN 500 MG TABLET PO ×2 (08:13→13:05)
[2024-12-29] MEDS: FLUTICASONE PROPIONATE 50 MCG NASAL SPRAY 2 SPRAY NS (08:25)
--- NOTE | 2024-12-29 08:28 | PM.DS1 ---
DS: Providers Provider Date of admission: 12/28/24 12:22 Primary care physician: CORRINE OLVERA Attending physician on admission: Marly Aguilera Consults: 12/26/24 13:06 Physical Therapy Eval and Treat Routine Reason for consultation: weakness Has provider been notified: No Discharging clinician: Marly Aguilera DS: Diagnosis Discharge Diagnosis (1) Pneumonia: Qualifiers: Laterality: bilateral Lung location: lower lobe of lung Pneumonia type: due to unspecified organism Qualified Code(s): J18.9 - Pneumonia, unspecified organism (2) Gram-positive bacteremia: (3) Acute on chronic hypoxic respiratory failure: (4) COPD exacerbation: (5) Hypothyroidism (acquired): (6) Insomnia: Qualifiers: Insomnia type: primary Qualified Code(s): F51.01 - Primary insomnia (7) Seasonal allergies: (8) Chronic lumbosacral pain: DS: Summary Hospital Course Hospital Course: Patient is a 74 y.o white female with past medical history of hypothyroidism, insomnia, seasonal allergies, COPD and chronic back pain what presented to the ER on 12/26/24 with weakness, shortness of breath, cough, nasal drainage, chills. This has been going on for several days prior to presentation. She is past smoker, quit many years ago. She does wears oxygen at home, 3L at home. ER findings: WBCs 6.3, Hb 11.6; CXR showed bilateral lower lobe infiltrates, influenza and COVID negative; She was treated with IV Rocephin, IV Azithromycin, duonebs, solumedrol. OPEP. At the time of discharge her shortness of breath is much improved and she is on her home oxygen of 3L continuous NC. She has a nebulizer machine at home but reports medications are out. I have sent in duonebs for her to use every 6 hours for the next 3 days, then just as needed. She will take and complete Zpak and Augmentin x 14 days. Patient had 1 out of 2 positive blood cultures which i explained to the patient is most likely skin contaminant. But C &S is pending at the time of discharge. I will treat her with for the full 2 week course and her PCP can adjust this once cultures have resulted. She had an episode Sinus Tachycardia, PVC's which the nanoscience technician called Afib. She also had Echocardiogram that was reviewed with her and was normal. She had low potassium and that was replaced, was 3.0 and at the time of discharge is 3.8 which could have caused the PVC's. I have placed a 7 day holter monitor on the patient and she has close outpatient follow up with her City Route Driver to discuss results and further plan of care. She also has follow up with her PCP. She may return to the ER with any worsening symptoms. She already has home oxygen. She will resume all other home medications. Status at Discharge Functional status at discharge: independent ambulation Overall status at discharge: patient is progressing back to baseline Time Spent with Patient Time attestation: Total time spent providing and/or coordinating discharge services: Time spent: greater than 30 minutes Exam Narrative Exam Narrative: General: Patient is alert, and oriented to person, place and time with normal affect, proper hygiene Skin: no visible rashes, or ulcers Head: atraumatic, acephalic Eyes: PERRLA, no nystagmus present, conjunctiva clear, no scleral icterus Ears: normal gross auditory acuity Neck: no masses palpated, normal thyroid Heart: Normal rate and rhythm, no murmurs/rubs/gallops Lungs: no audible wheezes, crackles and normal breath sounds Abdomen: Normal audible bowel sounds, no distension, No palpable masses, no organomegaly, no rebound/guarding/ or rigidity Musculoskeletal: no swelling bilateral lower extremities Neuro: CN II-X grossly intact Constitutional Vital Signs, click to edit/add: Last Vital Signs Temp 98.3 F 12/29/24 07:36 Pulse 96 H 12/29/24 08:00 Resp 18 12/29/24 07:36 BP 126/68 12/29/24 07:36 Pulse Ox 90 L 12/29/24 07:36 O2 Del Method Room Air 12/29/24 07:36 O2 Flow Rate 1 12/29/24 04:44 DS: Data Data Completed and Pending Labs on day of discharge: Labs from last 24 hours 12/29/24 12/28/24 06:12 05:57 WBC 5.1 RBC 3.82 L Hgb 10.6 L Hct 33.5 L MCV 87.7 MCH 27.7 MCHC 31.6 RDW 16.9 H Plt Count 101 L MPV 12.0 Seg Neuts % (Manual) 91.0 H Lymphocytes % (Manual) 3.0 L Monocytes % (Manual) 5.0 Eosinophils % (Manual) 0.0 L Basophils % (Manual) 0.0 L Metamyelocytes % 1.0 Neutrophils # (Manual) 4.64 Lymphocytes # (Manual) 0.15 L Monocytes # (Manual) 0.25 L Eosinophils # (Manual) 0.00 Basophils # (Manual) 0.00 Metamyelocytes # 0.05 Anisocytosis 2+ Sodium 145 Potassium 3.8 Chloride 109 H Carbon Dioxide 27.9 Anion Gap 11.9 BUN 12.0 Creatinine 0.54 L Est GFR ( Amer) >60 Est GFR (Non-Af Amer) >60 BUN/Creatinine Ratio 22.2 Glucose 173 H Calcium 6.9 L Magnesium 2.3 Total Bilirubin 0.4 AST 14 L ALT 23 Alkaline Phosphatase 71 Total Protein 6.4 Albumin 2.7 L Globulin 3.7 Albumin/Globulin Ratio 0.7 TSH 0.010 L Preliminary micro results at discharge 12/26/24 11:04 Blood Culture Result 2 - Preliminary Blood NO GROWTH AT 36-48 HOURS. FINAL TO FOLLOW. 12/26/24 10:59 Blood Culture Result 1 - Preliminary Blood Discharge Plan Discharge Disposition: Home, Self-Care Condition: Fair Discharge Medications: New ipratropium-albuterol 0.5 mg-3 mg(2.5 mg base)/3 mL Solution For Nebulization 3 ml inhalation Q6H PRN (Reason: Shortness Of Breath Or Wheezing) 30 Days Qty: 3 0RF Rx Instructions: Disp #1 box azithromycin 250 mg tablet See Rx Instructions .ROUTE .COMPLEX Qty: 6 0RF Rx Instructions: For 250 mg dose pack: take 500 mg today (day 1), then 250 mg for 4 days (days 2-5) prednisone 20 mg tablet 20 mg PO BID 7 Days Qty: 14 0RF amoxicillin-pot clavulanate [Augmentin] 500-125 mg tablet 1 tab PO BID 14 Days Qty: 28 0RF Continued acetaminophen-codeine 300-30 mg tablet 0.5 tab PO QID Rx Instructions: takes with tylenol 500 mg albuterol sulfate 90 mcg/actuation HFA aerosol inhaler 2 puff INHALATION Q4H PRN (Reason: shortness of breath or wheezing) Breztri Aerosphere 160-9-4.8 mcg/actuation HFA aerosol inhaler 2 inh INHALATION BID cetirizine 10 mg tablet 10 mg PO QPM cyanocobalamin (vitamin B-12) 1,000 mcg/mL solution 1,000 mcg IM .[id number] ergocalciferol (vitamin D2) 1,250 mcg (50,000 unit) capsule 1,250 mcg PO QWEEK fluticasone propionate 50 mcg/actuation spray,suspension 2 spray INTRANASAL DAILY levothyroxine 88 mcg tablet 88 mcg PO DAILY temazepam 15 mg capsule 15 mg PO QPM pregabalin 100 mg capsule 300 mg PO .Q8 acetaminophen [Tylenol Extra Strength] 500 mg tablet 500 mg PO QID Rx Instructions: takes with tyleno#3 Activity: increase activity as tolerated and wear oxygen at all times Activity Detail: 3L NC oxygen Diet: advance to your usual diet Print Language: [place] Patient Instructions: Pneumonia (GEN) Forms: Portal Instructions Follow Up Appointments: Thurs. Moy, 2024 at 0830 [facility], Dr Stewart, microsoft dynamics ax developer January 22, 2025 at 11:15, [address] [place] [address] Discharge location: Home, Holter monitor 7 days on, review with results with [employer]
[2024-12-29] MEDS: BUDESONIDE 0.5 MG/2 ML AMPULE NEB IH (11:00)
[2024-12-29] MEDS: CEFTRIAXONE 1,000 MG in 0.9 % SODIUM CHLORIDE 50 ML 100 MG IV (11:11)
[2024-12-29] MEDS: AZITHROMYCIN 500 MG in 0.9 % SODIUM CHLORIDE 250 ML 250 MG IV (11:11)
--- NOTE | 2024-12-29 11:42 | CM.NOTE ---
Rounds made with Dr. Aguilera, pt will discharge to home today and f/u with cardiology and PCP. Pt will discharge with 7 days Holter monitor.
--- NOTE | 2025-01-01 11:55 | CM.DCFOLLOWU ---
Person spoke with: Glo How are you feeling? Better but still having some SOB How is your pain? No pain Did you understand your discharge instructions? Yes Do you have any questions about your discharge instructions? No Were you given any prescriptions at discharge? Yes Were you able to get your prescriptions filled? Yes Do you understand how to take your medications as ordered? Yes Do you have any questions about your follow up appointment and do you plan to keep your follow up appointment? No questions and plan on going to appt Is there anything else that you would like to discuss? No Questions/Comments/Concerns/Other:
== END 2024-12-29 15:05 | disposition home or self-care (01) | DRG 193 ==
LOC: ER 11:39 → MS 12-27 07:45
PROVIDERS: Admitting Provider Family Medicine; Emergency Provider Emergency Medicine; Visit Provider Family Medicine
DX: J18.9 Pneumonia, unspecified organism (principal); J96.21 Acute and chronic respiratory failure with hypoxia; J44.0 Chronic obstructive pulmonary disease with (acute) lower respiratory infection; J44.1 Chronic obstructive pulmonary disease with (acute) exacerbation; R78.81 Bacteremia; E03.9 Hypothyroidism, unspecified; J30.2 Other seasonal allergic rhinitis; Z87.891 Personal history of nicotine dependence; Z99.81 Dependence on supplemental oxygen; M54.50 Low back pain, unspecified; G89.29 Other chronic pain; F51.01 Primary insomnia; Z79.890 Hormone replacement therapy; Z79.899 Other long term (current) drug therapy; E87.6 Hypokalemia
CPT/HCPCS: 36415; 71045; 80048; 80053; 83605; 83735; 84443; 84484; 85007; 85025; 85027; 87040; 87150; 87804; 87811; 90662; 93005; 93242; 93306; 94640; 94667; 94668; 94761; 96365; 96366; 96367; 96368; 96372; 96375; 96376; 97161; 99285; G0008; G0378; J0456; J0696; J1650; J2919; J3480